=== PATIENT | female | born 1990 | race Caucasian/White ===

== ENCOUNTER 2020-01-01 19:56 | Emergency (ER) | payer OTHER ==
[~2020-01-01] VITALS: Ht 162.6 cm; Wt 65.4 kg
[2020-01-01] MEDS ORDERED: CETI10TA4 PO (20:03)
[2020-01-01] MEDS ORDERED: ACET-683 PO (20:07)
[2020-01-01] MEDS ORDERED: NS 1,000 ML IV ONE (21:00)
[2020-01-01] MEDS ORDERED: ONDANSETRON 4MG/2ML VIAL IV ONE (21:00)
[2020-01-01 21:36] LABS: BASO % 0.4 % (0.0-1.0); EOS % 0.2 % (0.0-3.0); HEMATOCRIT 40.4 % (36.0-47.0); HEMOGLOBIN 13.2 g/dl (12.0-15.5); LYMPH # 1.4 10^3/uL (1.5-5.0); LYMPH % 27.8 % (24.0-44.0); MEAN CORPUSCULAR HEMOGLOBIN 29.7 pg (27.0-33.0); MEAN CORPUSCULAR HGB CONC 32.7 g/dl (32.0-36.5); MONO # 0.3 10^3/uL (0.0-0.8); MONO % 5.2 % (0.0-5.0); NEUTROPHILS # 3.3 10^3/uL (1.5-8.5); NEUTROPHILS % 66.2 % (36.0-66.0); PLATELET COUNT, AUTOMATED 230 10^3/uL (150-450); RED BLOOD COUNT 4.44 10^6/uL (4.00-5.40)
[2020-01-02 00:06] VITALS: BP 116/80
== END 2020-01-02 00:08 | disposition home or self-care (01) ==
LOC: M ED 19:56
DX: O99.891 Other specified diseases and conditions complicating pregnancy (principal); R53.83 Other fatigue; R11.0 Nausea; R50.9 Fever, unspecified; Z3A.01 Less than 8 weeks gestation of pregnancy; Z11.59 Encounter for screening for other viral diseases
CPT/HCPCS: 80047; 81001; 84702; 85025; 96360; 96361; 96374; 99284; J2405

== ENCOUNTER → 2020-01-25 | Outpatient (REF) | payer OTHER ==
[~2020-01-25] MED LIST: ACET-683 PO; CETI10TA4 PO
[2020-01-25 13:55] LABS: HEMOGLOBIN 12.8 g/dl (12.0-15.5); MEAN CORPUSCULAR HEMOGLOBIN 30.3 pg (27.0-33.0); MEAN CORPUSCULAR HGB CONC 32.8 g/dl (32.0-36.5); MEAN CORPUSCULAR VOLUME 92.4 fl (80.0-96.0); PLATELET COUNT, AUTOMATED 299 10^3/uL (150-450); RED BLOOD COUNT 4.22 10^6/uL (4.00-5.40); WHITE BLOOD COUNT 8.4 10^3/uL (4.0-10.0)
[2020-01-25 15:13] LABS: HIV 1&2 SCREEN CENTAUR NEGATIVE (NEGATIVE)
[2020-01-25 15:35] LABS: CHLAMYDIA DNA AMPLIFICATION NEGATIVE (NEGATIVE); GC DNA AMPLIFICATION NEGATIVE (NEGATIVE)
== END ==
LOC: M PLALAB 11:29
PROVIDERS: ATTEND Obstetrics & Gynecology
DX: Z34.01 Encounter for supervision of normal first pregnancy, first trimester (principal); Z3A.00 Weeks of gestation of pregnancy not specified

== ENCOUNTER → 2020-03-28 | Outpatient (CLI) | payer OTHER ==
--- NOTE | 2020-03-28 10:35 | REP ---
INDICATION: ANATOMY COMPARISON: None. TECHNIQUE: Transabdominal obstetrical ultrasound with color Doppler evaluation. FINDINGS: Examination demonstrates a single live intrauterine in cephalic presentation. motion is identified by technologist. Placenta is noted posterior and grade 1 without evidence for placenta previa or abruption. Amniotic fluid volume is normal. Cervix measures 4.1 cm in length and appears closed.. Gestational age by current measurements 20 weeks 1 day with RAMONA 08/14/2020. FHR equals 135 beats per minute. BPD: 4.8 cm 20 weeks 4 days HC: 17.6 cm 20 weeks 1 day AC: 15.3 cm 20 weeks 3 days FL: 3.1 cm 19 weeks 5 days HL: 3.1 cm 20 weeks 2 days HC/AC: 1.15 Estimated weight 334 grams (41stpercentile). Anatomical assessment demonstrates normal structures including cranium, choroid plexus, cavum, cerebellum/posterior fossa, facial features, lungs, four-chamber heart/ventricular outflow tracts, diaphragm, stomach, cord insertion/three-vessel cord, kidneys/bladder, spine, and extremities. IMPRESSION: Single live intrauterine in cephalic presentation demonstrating appropriate estimated weight. Anatomical assessment is complete and normal. <Electronically signed by Yann Esquivel > 03/28/20 [id number]
== END ==
LOC: M WHC 09:06
PROVIDERS: ATTEND Obstetrics & Gynecology
DX: Z34.92 Encounter for supervision of normal pregnancy, unspecified, second trimester (principal); Z3A.20 20 weeks gestation of pregnancy

== ENCOUNTER → 2020-04-10 | Outpatient (REF) | payer OTHER | LOC: M PLALAB 18:18 | PROVIDERS: ATTEND Obstetrics & Gynecology | DX: Z3A.22 22 weeks gestation of pregnancy (principal) ==

== ENCOUNTER → 2020-05-16 | Outpatient (REF) | payer OTHER ==
[2020-05-16 15:45] LABS: HEMATOCRIT 35.7 % (36.0-47.0); HEMOGLOBIN 11.4 g/dl (12.0-15.5); MEAN CORPUSCULAR HEMOGLOBIN 29.8 pg (27.0-33.0); MEAN CORPUSCULAR HGB CONC 31.9 g/dl (32.0-36.5); MEAN CORPUSCULAR VOLUME 93.2 fl (80.0-96.0); PLATELET COUNT, AUTOMATED 314 10^3/uL (150-450); RED BLOOD COUNT 3.83 10^6/uL (4.00-5.40); WHITE BLOOD COUNT 15.4 10^3/uL (4.0-10.0)
== END ==
LOC: M PLALAB 10:25
PROVIDERS: ATTEND Advanced Practice Midwife
DX: Z36.89 Encounter for other specified antenatal screening (principal); Z3A.22 22 weeks gestation of pregnancy
CPT/HCPCS: 36415; 82950; 85027; 86850; 86900; 86901; G0463

== ENCOUNTER → 2020-05-22 | Outpatient (CLI) | payer OTHER | LOC: M LAB 08:11 | PROVIDERS: ATTEND Advanced Practice Midwife | DX: O99.810 Abnormal glucose complicating pregnancy (principal); Z3A.00 Weeks of gestation of pregnancy not specified ==

== ENCOUNTER → 2020-07-24 | Outpatient (REF) | payer OTHER ==
[~2020-07-24] MED LIST changes: +PRENTAB9 PO; +ZYRTTAB8 PO
== END ==
LOC: M SFHCWAGY 17:19
PROVIDERS: ATTEND Specialist
DX: O24.419 Gestational diabetes mellitus in pregnancy, unspecified control (principal); Z3A.00 Weeks of gestation of pregnancy not specified
CPT/HCPCS: 87081; 87186; G0463

== ENCOUNTER 2020-07-29 05:29 | Outpatient (CLI) | payer OTHER ==
[~2020-07-29] VITALS: Ht 162.6 cm; Wt 79.3 kg
[~2020-07-29 05:29] MED LIST changes: -PRENTAB9 PO; -ZYRTTAB8 PO
[2020-07-29 06:00] VITALS: BP 146/93
[2020-07-29] MEDS ORDERED: PRENTAB9 PO (06:05)
[2020-07-29 07:00] VITALS: BP 130/90
[2020-07-29 07:38] VITALS: BP 140/93
[2020-07-29 07:55] VITALS: BP 117/80
[2020-07-29 08:34] VITALS: BP 114/82
[2020-07-29 08:53] LABS: HEMATOCRIT 35.5 % (36.0-47.0); HEMOGLOBIN 11.2 g/dl (12.0-15.5); MEAN CORPUSCULAR HEMOGLOBIN 27.1 pg (27.0-33.0); MEAN CORPUSCULAR HGB CONC 31.5 g/dl (32.0-36.5); PLATELET COUNT, AUTOMATED 253 10^3/uL (150-450); RED BLOOD COUNT 4.13 10^6/uL (4.00-5.40); WHITE BLOOD COUNT 13.3 10^3/uL (4.0-10.0)
[2020-07-29 08:58] LABS: ALT/SGPT 20 U/L (12-78); BILIRUBIN,TOTAL 0.1 MG/DL (0.2-1.0); CREATININE FOR GFR 0.52 MG/DL (0.55-1.30); GLOMERULAR FILTRATION RATE > 60.0 (>60); LDH LACTATE DEHYDROGENASE 196 U/L (84-246); URIC ACID 4.6 MG/DL (2.6-6.0)
--- NOTE | 2020-07-29 09:31 | IPNPDOC ---
Text Note Date of Service The patient was seen on 07/29/20. NOTE 29 yo G1 at 37 2/7 weeks presents for attempt at external cephalic version. C onsent signed. No contractions. O: 140/84 NAD Abd: NT gravid FHT: cat. I toco: none bedside ultrasound: breech, BARBIE=8.0 Procedure note: Pt placed supine. Ultrasound utilized at bedside. NST category one. Abdomen generously coated with lubrication. Two attempts at ECV performed by pressing vertex in clockwise direction. The buttocks were elevated at the same time. Both attempts were unsuccessful. Pt tolerated the procedure well. monitoring resumed after attempts. A/P 29 yo G1 at 37 3/7 weeks with breech presentation Consent for signed. Ordered PIH labs due to increased BP today. f-u office 08/01/20 VS,Traci, I+O VS, Traci, I+O Laboratory Tests 07/29/20 07:51 Vital Signs Date Time Temp Pulse Resp B/P (MAP) Pulse Ox O2 Delivery O2 Flow Rate FiO2 07/29/20 06:00 98.0 107 16 146/93 (110) Room Air DONAVAN DA SILVA MD July 29, 2020 09:31
== END 2020-07-29 09:30 | disposition home or self-care (01) ==
LOC: M LDO 05:29
PROVIDERS: ATTEND Specialist
DX: O32.1XX0 Maternal care for breech presentation, not applicable or unspecified (principal); Z3A.37 37 weeks gestation of pregnancy; Z88.8 Allergy status to other drugs, medicaments and biological substances
CPT/HCPCS: 59025; 59412; 82247; 82565; 83615; 84450; 84460; 84550; 85027; G0378; G0463

== ENCOUNTER 2020-07-31 11:18 | Outpatient (CLI) | payer OTHER ==
[~2020-07-31] VITALS: Ht 162.6 cm; Wt 79.2 kg
[~2020-07-31 11:18] MED LIST changes: +PRENTAB9 PO
[2020-07-31 11:38] VITALS: BP 122/72
[2020-07-31] MEDS ORDERED: ZYRTTAB8 PO (11:41)
--- NOTE | 2020-07-31 12:11 | IPNPDOC ---
Text Note Date of Service The patient was seen on 07/31/20. NOTE Triage Note Gem is a 29yo with SIUP at 37w4d presenting to triage for DFM. She called the triage nurse and noted no movement observed since 10pm last night. She tried eating and drinking and still did not feel movement. No ctx/LOF/vaginal bleeding. She is scheduled for PLTCS for persistent breech presentation s/p failed ECV and was noted to have oligohydramnios (BARBIE of 5cm) at prior visit. She also has A1GDM. Vitals wnl, afebrile Gen: WDWN, resting comfortably in bed Abdomen: soft, gravid, NTTP Cat I FHRT with +accels, -decels, mod rommel Erick: irregular ctx TAUS: SIUP with breech presentation ( head in maternal LUQ), posterior placenta, +FCA, +FM, BARBIE 9.7cm Assessment: Gem is a 29yo with SIUP at 37w4d with reassuring assessment. She is now feeling movement since arrival to triage. Vitals wnl, benign exam. Cat I FHRT with BARBIE 9.7cm. Plan: -reassurance provided -safe for discharge home -patient has routine OB appt tomorrow, advised to keep -continue good hydration -return precautions discussed Windy Patel MD VS,Traci, I+O VSTraci, I+O Vital Signs Date Time Temp Pulse Resp B/P (MAP) Pulse Ox O2 Delivery O2 Flow Rate FiO2 07/31/20 11:38 98.0 111 20 122/72 (89) Windy Patel MD July 31, 2020 12:10
== END 2020-07-31 12:10 | disposition home or self-care (01) ==
LOC: M LDO 11:18
PROVIDERS: ATTEND Obstetrics & Gynecology
DX: O36.8130 Decreased fetal movements, third trimester, not applicable or unspecified (principal); Z3A.37 37 weeks gestation of pregnancy; O32.1XX0 Maternal care for breech presentation, not applicable or unspecified; O24.410 Gestational diabetes mellitus in pregnancy, diet controlled; O41.03X0 Oligohydramnios, third trimester, not applicable or unspecified; Z88.8 Allergy status to other drugs, medicaments and biological substances
CPT/HCPCS: 59025; 76815; G0378; G0463

== ENCOUNTER 2020-08-03 07:30 | Inpatient (IN) | payer OTHER ==
[~2020-08-03] VITALS: Ht 162.6 cm; Wt 80.1 kg
[~2020-08-03 07:30] MED LIST changes: +ZYRTTAB8 PO
[2020-08-13] VITALS (8 sets, daily range): BP systolic 127–139; BP diastolic 65–89
[2020-08-13] MEDS ORDERED: BICITRA 30ML SOLN UDC PO ONE (07:55)
[2020-08-13] MEDS ORDERED: ceFAZolin SOD 2 GM in IV 1 EA IV ONE (07:55)
[2020-08-13] MEDS ORDERED: LR 800 ML IV ONE (08:00)
[2020-08-13] MEDS ORDERED: LR 1,000 ML IV SCH ×2 (09:00→11:20)
[2020-08-13 09:19] LABS: HEMATOCRIT 35.2 % (36.0-47.0); HEMOGLOBIN 10.9 g/dl (12.0-15.5); MEAN CORPUSCULAR VOLUME 83.8 fl (80.0-96.0); PLATELET COUNT, AUTOMATED 257 10^3/uL (150-450); WHITE BLOOD COUNT 11.4 10^3/uL (4.0-10.0)
[2020-08-13] MEDS ORDERED: NALBUPHINE HCL 10 MG/ML AMP (J2300) IV PRN (10:32)
[2020-08-13] MEDS ORDERED: METOCLOPRAMIDE INJ 10MG/2ML VIAL (J2765 PER 1) IV PRN (10:32)
[2020-08-13] MEDS ORDERED: ONDANSETRON 4MG/2ML VIAL IV PRN ×3 (10:32→11:45)
[2020-08-13] MEDS ORDERED: diphenhydrAMINE 50MG/ML VIAL (J1200) IV PRN (10:32)
[2020-08-13] MEDS ORDERED: NALOXONE INJ 0.4MG/1ML VIAL (J2310 PER 1MG) IV PRN ×2 (10:32)
[2020-08-13] MEDS ORDERED: ONDANSETRON 4MG/2ML VIAL As Ordered ONE (10:57)
[2020-08-13] MEDS ORDERED: PHENYLephrine 500MCG 5ML (100MCG/ML) SYRINGE As Ordered ONE (10:57)
[2020-08-13] MEDS ORDERED: MORPHINE PRES-FREE INJ 10 MG/10 ML VIAL (J2274) As Ordered ONE (10:57)
[2020-08-13] MEDS ORDERED: KETOROLAC 60MG 2ML VIAL As Ordered ONE (10:57)
[2020-08-13] MEDS ORDERED: OXYTOCIN 30 UNITS IN 0.9% NaCl 500ML IV BAG (J2590) As Ordered ONE ×2 (10:57→11:32)
[2020-08-13] MEDS ORDERED: dexameTHASONE 4 MG/ML 1ML VIAL (J1100 PER 1MG) As Ordered ONE (10:57)
[2020-08-13] MEDS ORDERED: RHOGAM 300 MCG (1500 IU) INJ (J2790) IM SCH (11:20)
[2020-08-13] MEDS ORDERED: OXYTOCIN DRIP 30 UNITS in IV 1 EA IV SCH (11:20)
[2020-08-13] MEDS ORDERED: MEASLES,MUMPS,RUBELLA VACCINE INJ (MMR-II) (90707) SC SCH (11:20)
--- NOTE | 2020-08-13 11:24 | ROOPDOC ---
[facility] Report Of Operation Report of Operation DATE OF PROCEDURE: 08/13/20 Report of operation Preoperative diagnosis: 39 0/7 weeks, breech Postoperative diagnosis: same Procedure: Repeat low transverse section. Surgeon: Donavan Da Silva M.D. Asst.: Lisa Nguyen CNM EBL: 500 ml. Urine output: 100 mL's. Findings: 7 lbs. 0 oz. male infant, sonia breech, 's 9 and 9 g normal uterus, fallopian tubes, ovaries. Operative summary: Patient taken to the operating room where spinal anesthesia was induced. She was prepped draped sterile fashion in the supine position. A Tavarez catheter was placed. A Pfannenstiel skin incision was made with scalpel. Fascia was incised and extended bilaterally. The peritoneal cavity was entered. A Mobius retractor was placed. A bladder flap was created. A curvilinear incision was made in lower uterine segment until Clear fluid was noted. The incision was extended manually. The was delivered from the breech position without difficulty. Cord was double clamped and cut. The was handed to awaiting nurses. The placenta was expressed. Uterus was closed with O-Vicryl in a running locked fashion. A second imbricating layer of Vicryl was placed. Peritoneum was closed with 2-0 Vicryl a running fashion. Fascia was closed with 0 Vicryl in running fashion. Skin was closed 4-0 Monocryl subcuticular sutures. Sponge, instrument and needle counts were correct. Lisa Nguyen CNM, assisted with all aspects of the procedure. She helped each layer of the incision and deliver the fetus. DONAVAN DA SILVA MD Aug 13, 2020 11:24
[2020-08-13] MEDS ORDERED: OXYC1TAB23 PO (11:25)
[2020-08-13] MEDS ORDERED: IBUP80TA PO (11:25)
[2020-08-13] MEDS ORDERED: oxyCODONE 5MG TAB PO PRN (11:45)
[2020-08-13] MEDS ORDERED: HYDROMORPHONE HCL 0.5 MG/ 0.5 ML SYRINGE (J1170 PER 1) IV PRN (11:45)
[2020-08-13] MEDS ORDERED: fentaNYL 100 MCG/2 ML INJECTION (J3010) IV PRN (11:45)
[2020-08-13] MEDS: KETOROLAC 30 MG/ML 1ML VIAL IV SCH ×2 (16:54→22:34)
[2020-08-13] MEDS: PERCOCET 5MG/325MG TAB PO PRN (18:31)
[2020-08-13] MEDS: DOCUSATE SODIUM 100MG CAPSULE PO PRN (22:34)
[2020-08-14 02:00] VITALS: BP 110/67
[2020-08-14] MEDS: KETOROLAC 30 MG/ML 1ML VIAL IV SCH (04:50)
[2020-08-14 06:00] VITALS: BP 116/58
[2020-08-14 07:15] LABS: HEMATOCRIT 30.1 % (36.0-47.0); HEMOGLOBIN 9.3 g/dl (12.0-15.5); MEAN CORPUSCULAR HEMOGLOBIN 26.1 pg (27.0-33.0); MEAN CORPUSCULAR HGB CONC 30.9 g/dl (32.0-36.5); MEAN CORPUSCULAR VOLUME 84.3 fl (80.0-96.0); PLATELET COUNT, AUTOMATED 242 10^3/uL (150-450); RED BLOOD COUNT 3.57 10^6/uL (4.00-5.40); WHITE BLOOD COUNT 18.1 10^3/uL (4.0-10.0)
--- NOTE | 2020-08-14 07:52 | IPNPDOC ---
Progress Note Date of Service: Aug 14, 2020 Day#: 1 Progress Note SUBJECT: Gem is a 29-year-old female who had a primary section for breech presentation. She has been ambulating, voiding spontaneously without issue and tolerating regular diet. Breast feeding without issue. OBJECTIVE: VITAL SIGNS: Within normal limits, afebrile. Alert and oriented times three. Breath sounds clear to auscultation. Abdomen: Fundus firm at U-2. Dressing intact without erythema surrounding it. Minimal lochia. ASSESSMENT: Day 1 postoperative for malpresentation PLAN: 1. Continue supportive nursing care 2. Anticipate discharge to home tomorrow. 3. Patient to shower and ambulate today. VS, I&O, 24H, Fishbone Vital Signs/I&O Vital Signs Date Time Temp Pulse Resp B/P (MAP) Pulse Ox O2 Delivery O2 Flow Rate FiO2 08/14/20 06:00 98.4 94 16 116/58 (77) 97 Room Air I&O- Last 24 Hours up to 6 AM 08/14/20 06:00 Intake Total 3855 ml Output Total 4450 ml Balance -595 ml Laboratory Data 24H LABS Laboratory Tests 2 08/13/20 08:44: Bedside Glucose (Misc Panel) 75 08/13/20 08:46: Nucleated Red Blood Cells % (auto) 0.0, Syphilis Serology NONREACTIVE 08/14/20 06:41: Nucleated Red Blood Cells % (auto) 0.0 CBC/BMP Laboratory Tests 08/13/20 08:46 08/14/20 06:41 BETHANY KIM CNM Aug 14, 2020 07:52
[2020-08-14] MEDS: PRENATAL VITAMINS CHEWABLE TABLET PO SCH (08:03)
[2020-08-14 10:00] VITALS: BP 118/73
[2020-08-14] MEDS: PERCOCET 5MG/325MG TAB PO PRN ×3 (10:18→23:29)
[2020-08-14] MEDS: SIMETHICONE 80MG CHEW TAB PO PRN ×2 (10:18→16:48)
[2020-08-14] MEDS: IBUPROFEN 800 MG TAB PO SCH ×2 (12:39→19:51)
[2020-08-14 14:00] VITALS: BP 107/74
[2020-08-14 18:00] VITALS: BP 128/72
[2020-08-14] MEDS: DOCUSATE SODIUM 100MG CAPSULE PO PRN (19:51)
[2020-08-14 22:00] VITALS: BP 114/68
[2020-08-15 02:00] VITALS: BP 119/68
[2020-08-15] MEDS: IBUPROFEN 800 MG TAB PO SCH ×2 (04:51→13:26)
--- NOTE | 2020-08-15 05:48 | DS.PDOC ---
Discharge Summary General Date of Admission Aug 13, 2020 at 07:25 Date of Discharge 08/15/20 Discharge Summary DATE OF ADMISSION: 08/13/2020 DATE OF DISCHARGE: 08/15/2020 ADMISSION DIAGNOSIS:. Breech presentation 39+ weeks gestation DISCHARGE DIAGNOSIS: Same, status post primary low transverse section DISCHARGE SUMMARY: The patient was admitted at, 39+ weeks gestation with a diagnosis of breech presentation. The scheduled section delivery was uncomplicated. Her postoperative course was uncomplicated as well. On postoperative day #2, she was meeting all discharge criteria. PHYSICAL EXAMINATION ON DATE OF DISCHARGE: Normotensive. Normal heart rate. Afebrile. HEART: Regular rate and rhythm. No murmurs, gallops, or rubs. LUNGS: Clear to auscultation bilaterally. ABDOMEN: Soft, nontender, nondistended. Incision bandage clean and dry. EXTREMITIES: Nonedematous, nontender. She was meeting all discharge criteria on postoperative day #2. We reviewed routine fever, infectious, pain, and bleeding precautions. She is to followup in 2 weeks for incision check. Her postoperative medications are Percocet, Motrin, and Colace. Vital Signs/I&Os Vital Signs Date Time Temp Pulse Resp B/P (MAP) Pulse Ox O2 Delivery O2 Flow Rate FiO2 08/15/20 02:00 97.9 93 16 119/68 (85) 98 Room Air Laboratory Data Labs 24H Laboratory Tests 2 08/14/20 06:41: Nucleated Red Blood Cells % (auto) 0.0 CBC/BMP Laboratory Tests 08/14/20 06:41 Discharge Medications Scheduled Ibuprofen (Ibuprofen) 800 Mg Tablet, 800 MG PO Q8H No.137/Iron/Folic Acd ( Vitamin Tablet) 1 Each Tablet, 1 TAB PO DAILY, (Reported) Scheduled PRN Docusate Sodium (Dok) 100 Mg Capsule, 100 MG PO QHSP PRN for CONSTIPATION Oxycodone HCl/Acetaminophen (Oxycodone-Acetaminophen 5-325) 1 Each Tablet, 1 TAB PO TIDP PRN for pain Miscellaneous Medications Cetirizine HCl/Pseudoephedrine (Zyrtec-D Tablet) 1 Each Tab.er.12h, 1 TAB PO, (Reported) Allergies Coded Allergies: cefdinir (Verified Allergy, Intermediate, c-diff, 01/01/20) VA LOPEZ DO Aug 15, 2020 05:48
[2020-08-15 06:00] VITALS: BP 132/79
[2020-08-15] MEDS ORDERED: DOK1CAP7 PO (06:26)
[2020-08-15] MEDS: PERCOCET 5MG/325MG TAB PO PRN (07:48)
[2020-08-15 10:00] VITALS: BP 140/75
[2020-08-15] MEDS: PRENATAL VITAMINS CHEWABLE TABLET PO SCH (11:52)
[2020-08-15] MEDS: DOCUSATE SODIUM 100MG CAPSULE PO PRN (16:29)
== END 2020-08-15 18:50 | disposition home or self-care (01) | DRG 773 ==
LOC: M LDI 08-13 07:25 → M OBS 08-13 13:00
PROVIDERS: ADMIT Specialist; ATTEND Specialist
PROC: 10D00Z1 Extraction of Products of Conception, Low, Open Approach (ICD-10-PCS; principal; 2020-08-13 09:30)
DX: O34.211 Maternal care for low transverse scar from previous cesarean delivery (principal); Z3A.39 39 weeks gestation of pregnancy; Z37.0 Single live birth; O32.1XX0 Maternal care for breech presentation, not applicable or unspecified

== ENCOUNTER → 2020-08-08 | Outpatient (CLI) | payer OTHER | LOC: M LABSMTC 12:35 | PROVIDERS: ATTEND Anesthesiology | DX: Z01.812 Encounter for preprocedural laboratory examination (principal); Z20.822 Contact with and (suspected) exposure to COVID-19 ==